=== PATIENT | female | born 1995 | race American Indian/Alaskan Native ===

== ENCOUNTER 2021-08-10 22:57 | Emergency (ER) | payer MEDICAID | END 2021-08-11 02:00 | disposition left against medical advice (07) | LOC: ED 22:57 | DX: O20.9 Hemorrhage in early pregnancy, unspecified (principal); Z3A.10 10 weeks gestation of pregnancy; Z53.21 Procedure and treatment not carried out due to patient leaving prior to being seen by health care provider ==